=== PATIENT | male | born 1950 | race Hispanic/Latino ===

== ENCOUNTER 2020-11-27 12:41 | Day surgery (SDC) | payer OTHER ==
[2020-11-25 12:48] LABS: Absolute Lymphocytes (CBC) 1.5 K/uL (0.7-4.9); Basophils % 0.9 % (0-1.3); Hematocrit 47.2 % (39.6-49.0); Lymphocytes % 22.5 % (15.3-44.8); MPV 8.2 fL (7.6-11.3); RBC Red Blood Cell Count 5.22 M/uL (4.33-5.43)
[2020-11-25 13:00] LABS: Protime INR 0.93
[2020-11-25 13:03] LABS: Potassium 4.3 mmol/L (3.5-5.1)
--- NOTE | 2020-11-25 13:17 | RAD REPORT ---
EXAM DESCRIPTION: Jessica Clarke (2 Views)11/25/2020 1:11 pm CLINICAL HISTORY: Preop for cardiac catheterization COMPARISON: 2014 FINDINGS: The lungs appear clear of acute infiltrate. The heart is normal size IMPRESSION: No acute abnormalities displayed
[2020-11-27] MEDS ORDERED: HEPA 1000U/500MLS 2,000 UNIT/1,000 ML BAG IV ONE (13:15)
[2020-11-27] MEDS ORDERED: LIDOCAINE 1% 20 ML MDV ONE (13:16)
[2020-11-27] MEDS ORDERED: NA CHLORIDE 0.9% 500 ML ONE (13:18)
[2020-11-27] MEDS ORDERED: FENTANYL CITR 100 MCG/2 ML ONE ×2 (15:04→16:49)
[2020-11-27] MEDS ORDERED: MIDAZOLAM HCL 2 MG/2 ML INJ ONE ×2 (15:04→16:49)
[2020-11-27] MEDS ORDERED: HEPARIN 5000 UNIT/ML 1 ML VIAL ONE ×4 (15:04→17:05)
[2020-11-27] MEDS ORDERED: VERAPAMIL HCL 10 MG/4 ML VIAL IV ONE (15:04)
[2020-11-27] MEDS ORDERED: ATROPINE SULF 1 MG/10 ML SYR IV ONE (15:04)
[2020-11-27] MEDS ORDERED: REGADENOSON 0.4 MG/5 ML SYR IV ONE (16:03)
[2020-11-27] MEDS ORDERED: TICAGRELOR 90 MG TABLET PO ONE (16:17)
[2020-11-27] MEDS ORDERED: NITROPRUSSIDE 50 MG VIAL IV ONE (16:42)
[2020-11-27] MEDS ORDERED: D5W 250 ML IV ONE (16:42)
[2020-11-27] MEDS ORDERED: HYDRALAZINE HCL 20 MG/ML VIAL ONE (16:45)
[2020-11-27] MEDS ORDERED: HEPA 1000U/500MLS 1,000 UNIT/500 ML BAG IV ONE (16:51)
[2020-11-27] MEDS ORDERED: ONDANSETRON 4 MG/2 ML VIAL ONE ×2 (17:09→18:56)
--- NOTE | 2020-11-27 17:48 | OP ---
Date of Procedure: 11/27/2020 Surgeon: ARUNA RAYMOND Procedures Performed: 1.Selective coronary angiogram. 2.FFR of the proximal LAD disease that was significant with a value of 0.75 followed by IVUS of the proximal LAD and followed by PCI of the proximal LAD. 3.IVUS of proximal LAD. 4.PCI of the proximal LAD using 4.0 x 28 mm Synergy drug-eluting stent post dilated proximally using a 5.0 x 12 mm NC balloon. 5.IFR measurement of moderate to proximal ramus intermedius disease with a negative value of 0.97. Indication: Unstable angina. Access: Right radial artery 6-Chadian closed with TR band. Bleeding: Less than 20 mL. Description Of Procedure: After risks, benefits, and alternatives were explained, the patient to agr eed to the procedure and signed informed consent. The patient was brought in the cardiac catheteriza tion laboratory, prepped and draped in usual sterile fashion. Then, I accessed right radial artery u sing pediatric micropuncture kit and then a 6-Chadian Slender sheath and I took a 5-Chadian [place] 4.0 c atheter into aortic root, engaged left main and right coronary artery, took standard views. Then, I took a 6-Chadian EBU 3.5 guide into the aortic root, engaged left main and then I took a Comet wire in to the aortic root. I gave a systemic heparin to assure ACT level above 250. Then, pressures were e qualized and then I took the wire into the left main then the LAD crossing the restenosis. FFR was d one using Lexiscan and a value of 0.75 was recorded and pullback showed no drift. Then, I took the C omet wire into the ramus intermedius and IFR was done. It was 0.97, so no further intervention was d one on this artery. Then, I took the Comet wire back into the LAD and then took an IVUS, did measure ments of the LV and evaluated the calcium and then prepped the lesion with a 4.0 x 50 mm Compliant ba lloon and then a 5.0 x 50 mm noncompliant balloon and then I used 4.0 x 10 mm [place] cutting ballo on and then subsequently I took the 4.0 x 28 mm Synergy drug-eluting stent and stent was deployed suc cessfully and there was loss of the diagonal branch 1. This was wired using a Run-Through wire and u sing a 1.2 balloon, I was able to cross and dilate it and then used a 2.0 balloon and dilated. Some partial flow was restored in the diagonal branch. Then, I used the 5.0 x 12 mm NC balloon to post di late the proximal part of the stent and then the IVUS post stent placement showed excellent stent pos ition that is well apposed and well expanded. Final pictures were satisfactory. I removed the mary ter and the guide and the sheath was removed and placed TR band with good hemostasis. Findings: 1.Left main is large with diffuse 10% to 20% stenosis. 2.LAD; proximal to mid 70% stenosis with positive FFR of 0.75, heavily calcified status post success ful PCI as above. 3.Ramus intermedius; large with proximal 60% negative IFR, value of 0.97. 4.Left circumflex; small vessel, nondominant with diffuse proximal 60% to 70% stenosis and mid focal 90% stenosis. 5.RCA; DISTRIBUTION DESIGNER proximally, totally occluded with good collaterals from the septal branches of the LAD th at fills all the PDA and PLB. Conclusion: Severe multivessel disease as above, status post successful PCI of proximal LAD disease. Plan: 1.Brilinta, aspirin, and statin. 2.Admit overnight for hydration due to the contrast load. 3.Possible left circumflex PCI at a later time if he continues to be symptomatic. SR/MODL Voice ID: [id number] Report ID: [id number]
[2020-11-27] MEDS ORDERED: NITROGLYCERIN 0.4 MG/TAB SL PRN (18:22)
[2020-11-27] MEDS ORDERED: ACETAMINOPHEN 325 MG TABLET PO PRN (18:23)
[2020-11-27] MEDS ORDERED: NA CHLORIDE 0.9% 1,000 ML IV SCH (19:00)
[2020-11-27] MEDS ORDERED: ROSUVASTATIN 10 MG TAB PO SCH (21:00)
[2020-11-27] MEDS: TICAGRELOR 90 MG TABLET PO SCH (21:00)
[2020-11-27] MEDS ORDERED: MONTELUKAST 10 MG TAB PO SCH (21:00)
[2020-11-27] MEDS ORDERED: cloNIDine HCL 0.1 MG TAB PO PRN (22:00)
[2020-11-27] MEDS: NA CHLORIDE 0.9% 1,000 ML IV SCH (22:03)
[2020-11-27 22:49] VITALS: BMI 33.8
[2020-11-28] MEDS ORDERED: ONDANSETRON 4 MG/2 ML VIAL IV PRN (03:07)
[2020-11-28] MEDS ORDERED: MORPHINE 4 MG/ML SYR IV PRN (03:07)
[2020-11-28] MEDS ORDERED: LEVOTHYROXINE SOD 0.025 MG TAB PO SCH (06:30)
[2020-11-28] MEDS: NA CHLORIDE 0.9% 1,000 ML IV SCH (06:43)
[2020-11-28 08:38] VITALS: BP 157/75; TEMP 98.8
[2020-11-28] MEDS ORDERED: ASPIRIN 81 MG CHEWABLE TABLET PO SCH (09:00)
[2020-11-28] MEDS ORDERED: MULTIVITAMIN TAB PO SCH (09:00)
[2020-11-28] MEDS ORDERED: hydroCHLOROthiazide 12.5 MG CAP PO SCH (09:00)
[2020-11-28] MEDS ORDERED: VITAMIN D 1000 UNIT TAB PO SCH (09:00)
[2020-11-28] MEDS ORDERED: NEBIVOLOL HCL 2.5 MG PO SCH (09:00)
[2020-11-28] MEDS ORDERED: ZINC SULFATE 220 MG CAP PO SCH (09:00)
[2020-11-28] MEDS ORDERED: ASCORBIC ACID 500 MG TABLET PO SCH (09:00)
[2020-11-28] MEDS ORDERED: AMLODIPINE 10 MG TAB PO SCH (09:00)
[2020-11-28] MEDS ORDERED: HOME MED 1 EA UNK (Levothyroxine Sodium [Levothyroxine] 25 MCG Capsule) PO SCH (09:00)
[2020-11-28] MEDS ORDERED: lisinopriL 10 MG TAB PO SCH ×2 (09:00)
[2020-11-28] MEDS ORDERED: AMLODIPINE 5 MG TAB PO SCH (09:00)
[2020-11-28] MEDS ORDERED: NEBIVOLOL HCL 5 MG TAB PO SCH (09:00)
[2020-11-28] MEDS ORDERED: IRBESARTAN 150 MG TAB PO SCH (09:00)
[2020-11-28] MEDS: TICAGRELOR 90 MG TABLET PO SCH (09:40)
[2020-11-28 11:24] VITALS: O2SAT 96
[2020-11-28] MEDS ORDERED: TRAZODONE 50 MG TABLET PO SCH ×2 (21:00)
[2020-11-28] MEDS ORDERED: ROSUVASTATIN 10 MG TAB PO SCH (21:00)
[2020-11-30] MEDS ORDERED: XIGDUO PO SCH (09:00)
== END 2020-11-28 11:11 | disposition home or self-care (01) ==
LOC: CCL 12:41 → 2ND 16:59 → CCL 11-28 11:11
PROVIDERS: ATTEND Internal Medicine
DX: I25.110 Atherosclerotic heart disease of native coronary artery with unstable angina pectoris (principal); I25.82 Chronic total occlusion of coronary artery; I10 Essential (primary) hypertension; E78.5 Hyperlipidemia, unspecified; I71.2 Thoracic aortic aneurysm, without rupture; E11.9 Type 2 diabetes mellitus without complications; Z91.041 Radiographic dye allergy status; Z20.822 Contact with and (suspected) exposure to COVID-19
CPT/HCPCS: 85025; 80048; 36415; 85610; 82947 ×2; 85347 ×4; 85730; 71046; 92979; 92978; 93454; 93571; 93572; U0003; C1893; C1725; C9600; J0360; J1644 ×6; J2250 ×2; J3010 ×2; J2785; J7060; J7040; J7030 ×2; J2405 ×2

== ENCOUNTER 2021-01-08 12:09 | Day surgery (SDC) | payer OTHER ==
[2021-01-05 14:02] LABS: Absolute Lymphocytes (CBC) 1.6 K/uL (0.7-4.9); Hematocrit 44.2 % (39.6-49.0); Lymphocytes % 24.6 % (15.3-44.8); MPV 8.2 fL (7.6-11.3); RBC Red Blood Cell Count 4.97 M/uL (4.33-5.43)
[2021-01-05 14:04] LABS: Protime INR 0.91
--- NOTE | 2021-01-06 10:07 | EKG ---
Test Date: 2021-01-05 Test Time: 12:31:09 Inside Sales Director: DI MEASUREMENT RESULTS: Intervals: Rate: 46 AL: 188 QRSD: 100 QT: 464 QTc: 406 [place]: P: -9 AL: 188 QRS: -12 T: 107 INTERPRETIVE STATEMENTS: Marked sinus bradycardia Nonspecific T wave abnormality Abnormal ECG Compared to ECG 06/11/1998 11:16:00 T-wave abnormality now present Electronically Signed On 01-06-21 10:04:50 CDT by Jonatan Lopez
[~2021-01-08 12:09] MED LIST: HEPA 1000U/500MLS 2,000 UNIT/1,000 ML BAG IV ONE
[2021-01-08] MEDS ORDERED: NA CHLORIDE 0.9% 500 ML ONE (12:36)
[2021-01-08] MEDS ORDERED: FENTANYL CITR 100 MCG/2 ML ONE (13:07)
[2021-01-08] MEDS ORDERED: ATROPINE SULF 1 MG/10 ML SYR IV ONE (13:07)
[2021-01-08] MEDS ORDERED: MIDAZOLAM HCL 2 MG/2 ML INJ ONE (13:07)
[2021-01-08] MEDS ORDERED: VERAPAMIL HCL 10 MG/4 ML VIAL IV ONE (13:07)
[2021-01-08] MEDS ORDERED: ASPIRIN 325 MG TAB ONE (13:08)
[2021-01-08] MEDS ORDERED: CLOPIDOGREL 75 MG TABLET ONE (13:08)
[2021-01-08] MEDS ORDERED: HEPARIN 5000 UNIT/ML 1 ML VIAL ONE ×2 (13:08→14:47)
[2021-01-08] MEDS ORDERED: TICAGRELOR 90 MG TABLET PO ONE (13:09)
[2021-01-08] MEDS ORDERED: DIPHENHYDRAMINE 50 MG/ML VIAL ONE (13:26)
[2021-01-08] MEDS ORDERED: METHYLPREDNISOLONE 125 MG INJ ONE (13:26)
[2021-01-08] MEDS ORDERED: HEPA 1000U/500MLS 1,000 UNIT/500 ML BAG IV ONE (13:50)
[2021-01-08 16:17] VITALS: TEMP 97
[2021-01-08 18:13] VITALS: BP 147/87; O2SAT 97
--- NOTE | 2021-01-08 22:25 | OP ---
Date of Procedure: 01/08/2021 Surgeon: ARUNA RAYMOND Procedures Performed: 1.PCI of severe proximal ramus intermedius stenosis using 3.5 x 60 mm drug-eluting Synergy drug-elut ing stent. 2.Failed attempt of PCI of left circumflex, severe disease. Indication: Residual known severe coronary artery disease. Complications: None. Access: Right radial artery 6-Tanzanian closed with TR band. Description Of Procedure: After risks, benefits, and alternatives were explained, the patient agreed to proceed and signed informed consent. The patient was brought to the cardiac catheterization [facility], prepped and draped in usual sterile fashion. Then, I accessed the right radial artery using pediatric micropuncture kit, placed a 6-Tanzanian slender sheath. I took a 6-Tanzanian EBU 3.5 guide into the aortic root, engaged the left main. Then took short run-through wire into the left main across t he area of stenosis of the ramus intermedius. The lesion was redilated and then placed a 3.5 x 60 mm Synergy drug-eluting stent with good results. Then attempted to wire the left circumflex and was he avily calcified near total occlusion and small vessel about 2 mm. Decided to abort the procedure and as this was a subtotal heavily calcified lesion and it was a small vessel. Throughout the procedure , we gave systemic heparin to assure level above 250. I removed the guide and the wires and the norman th, and placed TR band with good hemostasis. Conclusion: 1.Successful PCI of the proximal ramus intermedius using 3.5 x 60 mm Synergy drug-eluting stent. 2.Failed attempt of PCI of left circumflex disease, new total occlusion, heavily calcified. Plan: Aspirin, Plavix, high-dose statin at this point and treat the rest of his coronary artery dise ase medically. SR/MODL Voice ID: [id number] Report ID: [id number]
== END 2021-01-08 17:30 | disposition home or self-care (01) ==
LOC: CCL 12:09
PROVIDERS: ATTEND Internal Medicine
DX: I25.10 Atherosclerotic heart disease of native coronary artery without angina pectoris (principal); I71.2 Thoracic aortic aneurysm, without rupture; I10 Essential (primary) hypertension; E78.5 Hyperlipidemia, unspecified; E11.9 Type 2 diabetes mellitus without complications; Z95.5 Presence of coronary angioplasty implant and graft; Z91.041 Radiographic dye allergy status; Z91.09 Other allergy status, other than to drugs and biological substances; Z20.822 Contact with and (suspected) exposure to COVID-19
CPT/HCPCS: 93005; 85025; 80048; 36415; 85610; 82947; 85730; 93454; U0002; C1893; C1725; C9600; J1200; J1644 ×4; J2250; J3010; J7040; J2930

== ENCOUNTER 2022-05-14 11:23 | Day surgery (SDC) | payer OTHER ==
--- NOTE | 2022-05-10 16:00 | RAD REPORT ---
EXAM DESCRIPTION: RAD - Chest Pa And Lat (2 Views) - 05/10/2022 3:50 pm CLINICAL HISTORY: pre op pending heart cath Chest pain. COMPARISON: Chest Pa And Lat (2 Views) dated 11/25/2020; CHEST PA AND LAT 2 VIEW dated 04/15/2015 FINDINGS: The lungs are clear. The heart is normal in size. No displaced fractures. IMPRESSION: No acute or concerning finding suspected.
[2022-05-10 16:39] LABS: Absolute Lymphocytes (CBC) 1.3 K/uL (0.7-4.9); Hematocrit 43.3 % (39.6-49.0); Lymphocytes % 20.5 % (15.3-44.8); RBC Red Blood Cell Count 4.81 M/uL (4.33-5.43)
[2022-05-10 16:42] LABS: Protime INR 0.94
[2022-05-10 16:49] LABS: Potassium 3.9 mmol/L (3.5-5.1)
--- NOTE | 2022-05-11 07:36 | EKG ---
Test Date: 2022-05-10 Test Time: 15:31:48 Night Manager: DI MEASUREMENT RESULTS: Intervals: Rate: 50 IN: 206 QRSD: 98 QT: 452 QTc: 412 [place]: P: 33 IN: 206 QRS: -22 T: 95 INTERPRETIVE STATEMENTS: Sinus bradycardia with marked sinus arrhythmia Nonspecific T wave abnormality Abnormal ECG Compared to ECG 01/05/2021 12:31:09 No significant changes Electronically Signed On 05-11-22 07:35:18 RESIDENTIAL DIRECT SUPPORT PROFESSIONAL by Jonatan Lopez
[~2022-05-14 11:23] MED LIST changes: +ASPIRIN 325 MG TAB ONE; +ATROPINE SULF 1 MG/10 ML SYR IV ONE; +CLOPIDOGREL 75 MG TABLET ONE; +FENTANYL CITR 100 MCG/2 ML ONE; +HEPARIN 10,000 UNIT/10 ML VIAL IV ONE; +HEPARIN 5000 UNIT/ML 1 ML VIAL ONE; +LIDOCAINE 1% 20 ML MDV ONE; +MIDAZOLAM HCL 2 MG/2 ML INJ ONE; +NA CHLORIDE 0.9% 500 ML ONE; +NITROGLYCERIN/D5W 25 MG/250 ML BTL IV ONE; +TICAGRELOR 90 MG TABLET PO ONE; +VERAPAMIL HCL 10 MG/4 ML VIAL IV ONE
[2022-05-14 11:46] VITALS: TEMP 97.3
[2022-05-14] MEDS ORDERED: DIPHENHYDRAMINE 50 MG/ML VIAL ONE (12:04)
[2022-05-14] MEDS ORDERED: METHYLPREDNISOLONE 125 MG INJ ONE (12:05)
[2022-05-14 15:27] VITALS: BP 128/76; O2SAT 97
--- NOTE | 2022-05-14 22:24 | OP ---
Date of Procedure: 05/14/2022 Surgeon: ARUNA RAYMOND Procedures Performed: 1.Selective coronary angiogram. 2.Left heart catheterization. Indications: Abnormal stress test and known history of coronary artery disease. Access: Right radial artery 6-Danish closed with TR band. Complications: None. Estimated Blood Loss: Bleeding less than 20 mL. Anesthesia: Total sedation time was 30 minutes, used fentanyl and Versed. Description Of Procedure: After risks, benefits, and alternatives were explained, the patient agreed to proceed and signed informed consent. The patient was brought into the cardiac catheterization la boratory and prepped and draped in usual sterile fashion. Then I accessed right radial artery using pediatric micropuncture kit, placed 6-Danish Slender sheath, and took 5-[place]anish [place] 4 catheter into the aortic root, engaged left main and right coronary artery, took standard views and then catheter w as pushed over the wire into the LV, measured LVEDP and then pullback did not record any gradient. T hen catheter was removed, sheath was removed, and placed TR band with good hemostasis. Findings: 1.Left main: Large and normal. 2.LAD is with proximal 20% to 30% stenosis and then there is a patent proximal to mid LAD stent. Th en in the mid segment there is a focal 30% stenosis. Diagonal branches appear with luminal irregular ities. 3.Ramus intermedius is very large. It is much larger than the left circumflex and it has proximal s tent that is patent, then luminal irregularities. 4.Left circumflex is small and it is nondominant. The ramus is taking place of the circ. It has 2 areas of 95% stenosis with some collateral flow from the septals and small vessel about 1.5 mm. 5.RCA: Proximal VOCATIONAL REHABILITATION COUNSELOR unchanged with O2 collaterals and collaterals from the septals that fills the P DA, so it is a dominant circulation. 6.Normal LVEDP between 8 and 10 mmHg. Conclusion: 1.Severe multivessel disease with patent left anterior descending and ramus intermedius stents. 2.Severe left circumflex and right coronary artery stenosis with good collaterals. 3.Failed attempt of percutaneous coronary intervention of the left circumflex chronic total occlusio n. Recommendation: Aggressive medical management. SR/MODL Voice ID: [id number] Report ID: [id number]
== END 2022-05-14 15:35 | disposition home or self-care (01) ==
LOC: CCL 11:23
PROVIDERS: ATTEND Internal Medicine
DX: I25.10 Atherosclerotic heart disease of native coronary artery without angina pectoris (principal); I25.82 Chronic total occlusion of coronary artery; I10 Essential (primary) hypertension; E78.5 Hyperlipidemia, unspecified; E11.9 Type 2 diabetes mellitus without complications; Z95.5 Presence of coronary angioplasty implant and graft; Z79.4 Long term (current) use of insulin; Z91.041 Radiographic dye allergy status
CPT/HCPCS: 93005; 85025; 80048; 36415; 85610; 82947; 85730; 71046; 93458; 76937; C1893; Q9966; J2001; J1200; J1644 ×2; J2250; J3010; J7040; J2930; J0461